=== PATIENT | male | born 1945 | race Caucasian/White ===

== ENCOUNTER 2020-07-26 10:45 | Day surgery (SDC) | payer MEDICARE, BC ==
[2020-07-26] VITALS (11 sets, daily range): BP systolic 111–134; BP diastolic 32–62; PULSE 60–87; TEMP 98–98.4
[~2020-07-26] VITALS: Ht 180.3 cm; Wt 96.6 kg
[2020-07-26] MEDS ORDERED: FLOMAX 0.40.4 MG/CAP PO (11:16)
[2020-07-26] MEDS ORDERED: ZOCOR 80MG80 MG PO (11:17)
[2020-07-26] MEDS ORDERED: ZYLOPRIM 100MG100 MG PO (11:18)
[2020-07-26] MEDS ORDERED: PRINIVIL40 MG PO (11:19)
[2020-07-26] MEDS ORDERED: LEVEMIR FLEX100 U/ML SQ (11:19)
[2020-07-26] MEDS ORDERED: NOVOLOG FLEX100 U/ML SQ (11:20)
[2020-07-26] MEDS ORDERED: ACTOS 45MG45 MG/TAB PO (11:20)
[2020-07-26] MEDS ORDERED: ONGLYZA5 MG PO (11:21)
[2020-07-26] MEDS ORDERED: B-121000 MCG PO (11:21)
[2020-07-26] MEDS ORDERED: NESINA12.5 PO (11:22)
--- NOTE | 2020-07-26 11:49 | NUR ---
The patient ambulated back to bay [facility] independently using a steady gait and apepared to tolerate activity well. Vital signs obtained. Consent signed. 18G IV started in left forearm with one stick, NS infusing without difficulty. Blood obtained from IV start for blood sugar with a result of 139. Heart Reg. Lungs clear. Bowel sounds audible. Call light is within reach. Will continue to monitor the patient.
--- NOTE | 2020-07-26 18:30 | NUR ---
Patient arrived to floor at approximately 1640. Patient was alert and oriented when he arrived. CBI in place running at a moderate rate, urine is dark pink. Patient has continued to deny pain and is tolerating PO intake well, advanced to a carb control diet per order. Patient denies further needs,call light within reach.
--- NOTE | 2020-07-26 19:52 | NUR ---
Bedside shift report received. pt awake and resting in bed. CBI second bag running with dark pink drainage. pt denies pain. castillo intact and draining. call light within reach
[2020-07-27 03:03] VITALS: BP 115/53; PULSE 70; TEMP 98.1
--- NOTE | 2020-07-27 07:25 | NUR ---
Lying in bed with eyes open. Alert and oriented x4. Denies pain. Discussed prime and pull with the patient. Mi with light pink urine and CBI at slow rate. IV site with mild edema, site dc'd at this time. Patient denies additional needs.
[2020-07-27 07:30] VITALS: BP 126/44; PULSE 65; TEMP 98.4
--- NOTE | 2020-07-27 09:00 | NUR ---
Prime and pull performed. Patient was again educated on procedure. Removed 40mL from balloon, catheter removed with all intact. Patient tolerates without difficulty. Provided urinal and patient will call when he has urinated. Educated to contact this nurse if unable to void and feels bladder is getting full. Denies additional needs at this time.
--- NOTE | 2020-07-27 09:20 | NUR ---
YANELI met with the patient to discuss discharge plan. The patient lives in [place] with his , Shannan (ph#[phone]). He reports independence with ADLs and does not have any DME. The patient's PCP is Dr. Bright Burrell and [facility] The patient does not have a DPOA-HC and he was not interested in completing one at this time. The patient plans to return home with his upon discharge. No additional needs at this time.
[2020-07-27 11:43] VITALS: BP 110/43; PULSE 61; TEMP 97.7
--- NOTE | 2020-07-27 11:53 | NUR ---
First visit from the account officer. No needs right now.
--- NOTE | 2020-07-27 12:46 | NUR ---
Initial visit; Patient, a long time friend of [facility]' thanked Recruiting Specialist for looking in on him and wishing him well and offering God's blessings.
--- NOTE | 2020-07-27 13:36 | NUR ---
Patient has completed five cups, urine is light red in color, no clots. Patient says that he is able to urinate without difficulty. is outside waiting on patient to discharge. Explained that we will get paperwork together at this time.
--- NOTE | 2020-07-27 13:47 | NUR ---
Review all discharge instructions with the patient. Patient questions if he is suppose to have antibiotics as he thought Dr. Park mentioned something about being on antibiotics after the procedure. Explained that none were ordered but we would call to clarify. Patient verbalizes understanding and signs discharge paperwork. Spoke with BETZAIDA Celeste, and he confirms that the patient will not need to be on antibiotics. Will inform patient. Patient getting dressed at this time. updated that we will be walking patient out to her soon.
--- NOTE | 2020-07-27 13:56 | NUR ---
Patient done getting dressed. Updated that no antibiotis are needed. Will walk out to POV with SRINI Anglin.
== END 2020-07-27 13:57 | disposition home or self-care (01) ==
LOC: SDCO 10:45 → SURG 10:45 → INPTSU 10:45 → SURG 13:15 → EDSTATUS 13:15 → SURG 16:40 → INPTSU 16:40 → SDCO 07-27 13:57 → SURG 07-27 13:57
DX: N40.0 Benign prostatic hyperplasia without lower urinary tract symptoms (principal); E11.9 Type 2 diabetes mellitus without complications; M10.9 Gout, unspecified; E78.00 Pure hypercholesterolemia, unspecified; I10 Essential (primary) hypertension; Z85.46 Personal history of malignant neoplasm of prostate; Z79.84 Long term (current) use of oral hypoglycemic drugs; Z82.3 Family history of stroke; E78.5 Hyperlipidemia, unspecified; Z20.828 Contact with and (suspected) exposure to other viral communicable diseases
CPT/HCPCS: OP; J0690; J1100; J1815; J2405; J2704; J3010; J7030